=== PATIENT | female | born 1985 | race Caucasian/White ===

== ENCOUNTER → 2018-12-07 10:38 | Outpatient (CLI) | payer OTHER, SELFPAY ==
[2018-12-07 12:12] LABS: TSH w/ Reflex to FT4 1.31 uIU/mL (0.47-4.68)
== END ==
PROVIDERS: PCP Family Medicine; Visit Provider Family Medicine
DX: F41.9 Anxiety disorder, unspecified (principal); R41.840 Attention and concentration deficit
CPT/HCPCS: 36415; 84443